=== PATIENT | male | born 1975 | race Caucasian/White ===

== ENCOUNTER → 2017-04-15 | Outpatient (CLI) | payer OTHER ==
--- NOTE | 2017-04-15 22:29 | ECHO ---
DATE OF PROCEDURE: 04/15/2017 REFERRING PHYSICIAN: Timothy Ortiz MD INDICATION: Chemotherapy drugs that may affect the heart. HEIGHT: 178 cm WEIGHT: 79 kg 2D MEASUREMENTS: Left atrium: 3.5 cm Aortic root: 3.1 cm Ventricular septum: 1.07 cm Posterior wall 1.01 cm Left ventricle diastole: 4.7 cm LVOT: 2.2 cm Inferior vena cava: 1.3 cm DOPPLER MEASUREMENTS: Aortic valve velocity: 105 cm/s LVOT velocity: 84.2 cm/s LVOT VTI: 18.5 cm Very mild mitral regurgitation. Mitral E velocity: 59.7 cm/s Mitral A velocity: 3.16 cm/s Mitral deceleration time: 187 ms Very mild tricuspid regurgitation. Mild pulmonic regurgitation. Pulmonary artery systolic pressure 19 mmHg by pulmonary acceleration time method. MITRAL ANNULAR TISSUE DOPPLER: E prime septal: 9.2 cm/s E prime lateral: 13.0 cm/s DESCRIPTION: Rhythm was sinus. Image quality was adequate. This is a 2D M-mode, color flow Doppler and pulse wave Doppler examination that included mitral annular tissue Doppler. CONCLUSIONS: 1. Normal left ventricle internal dimensions and wall thickness. Normal left ventricle (LV) wall motion and wall thickening. Normal LV systolic function. Left ventricular ejection fraction (LVEF) 60% by visual estimate. Normal LV diastolic function. 2. No vegetations. 3. No pericardial effusion. 4. No intramyocardial or intracardiac masses. 5. Normal echocardiogram Doppler.
== END ==
LOC: M CARPUL 08:19
PROVIDERS: ATTEND Physician Assistant
DX: I51.7 Cardiomegaly (principal)